=== PATIENT | male | born 1975 | race Caucasian/White ===

== ENCOUNTER 2021-09-28 11:59 | Inpatient (IN) | payer OTHER ==
[2021-09-28 14:00] VITALS: BMI 21.6
[2021-09-28] MEDS ORDERED: ACETAMINOPHEN 325 MG TABLET (FP) PO PRN ×2 (17:47)
[2021-09-28] MEDS ORDERED: MENTHOL/PHENOL 1 EACH UD MM PRN (17:47)
[2021-09-28] MEDS ORDERED: IBUPROFEN 400 MG TABLET (FP) PO PRN (17:47)
[2021-09-28] MEDS ORDERED: BISMUTH SUBSALICYLATE 524 MG/30 ML PO PRN (17:47)
[2021-09-28] MEDS ORDERED: MAGNESIUM HYDROX 2400MG/30ML ORAL SUSPENSION 30 ML CUP PO PRN (17:47)
[2021-09-28] MEDS ORDERED: MAG HYDROX/AL HYDROX/SIMETH 30 ML UNIT-DOSE CUP PO PRN (17:47)
[2021-09-28] MEDS ORDERED: METHOCARBAMOL 500 MG TABLET PO PRN (17:47)
[2021-09-28] MEDS ORDERED: ONDANSETRON *ODT* 4 MG TABLET SL PRN (17:47)
[2021-09-28] MEDS ORDERED: MAGNESIUM CITRATE 300 ML BOTTLE PO PRN (17:47)
[2021-09-28] MEDS ORDERED: NICOTINE 10 MG CARTRIDGE (INHALER) IH PRN (17:47)
[2021-09-28] MEDS: hydrOXYzine PAMOATE 25 MG CAPSULE (FP) PO SCH ×2 (18:50→22:36)
[2021-09-28] MEDS ORDERED: MELATONIN 5 MG TABLETS PO SCH (22:00)
[2021-09-28] MEDS ORDERED: THIAMINE HCL 100 MG TABLET (FP) PO SCH (22:00)
[2021-09-29] MEDS: hydrOXYzine PAMOATE 25 MG CAPSULE (FP) PO SCH ×3 (07:13→13:15)
[2021-09-29] MEDS ORDERED: NICOTINE 21 MG/24 HOURS TOPICAL PATCH TD SCH (10:00)
[2021-09-29] MEDS ORDERED: PRENATAL VITAMINS W/ FOLIC ACID TABLET (FP) PO SCH (10:00)
[2021-09-29 10:41] LABS: HEMATOCRIT 40.8 % (35.4-49); HEMOGLOBIN 13.9 GM/dL (11.7-16.9); MCH 31.1 pg (25.7-33.7); MEAN CELL VOLUME 91.5 fl (80-96); PLATELET COUNT 267 10^3/uL (134-434); RBC 4.46 M/mm3 (4.00-5.60); RDW 12.3 % (11.9-15.9); WHITE BLOOD COUNT 4.3 K/mm3 (4.0-10.0)
[2021-09-29 11:20] LABS: CALCIUM 8.8 mg/dL (8.5-10.1)
[2021-09-29 11:21] LABS: ALBUMIN 3.2 g/dl (3.4-5.0); BLOOD UREA NITROGEN 10.5 mg/dL (7-18)
[2021-09-29 11:23] LABS: BILIRUBIN,TOTAL 0.3 mg/dL (0.2-1); TOT PROT 7.6 g/dl (6.4-8.2)
[2021-09-29 11:24] LABS: CREATININE 0.8 mg/dL (0.55-1.3)
[2021-09-29 13:29] VITALS: BP 96/65; PULSE 79; TEMP 98.7
== END 2021-09-29 13:35 | disposition home or self-care (01) | DRG 774 ==
LOC: YASAS 11:59 → UNDOADMIN 15:17 → Y3N 15:17
PROVIDERS: ADMIT Allergy & Immunology; ATTEND Allergy & Immunology
PROC: HZ2ZZZZ Detoxification Services for Substance Abuse Treatment (ICD-10-PCS; principal; 2021-09-28)
DX: F10.230 Alcohol dependence with withdrawal, uncomplicated (principal); F14.20 Cocaine dependence, uncomplicated; F12.20 Cannabis dependence, uncomplicated; F17.210 Nicotine dependence, cigarettes, uncomplicated; Z21 Asymptomatic human immunodeficiency virus [HIV] infection status; Z91.14 Patient's other noncompliance with medication regimen
CPT/HCPCS: 36415; 80053; 85027; 86780; C9803; U0003; U0005

== ENCOUNTER 2022-03-16 11:57 | Inpatient (IN) | payer OTHER ==
[2022-03-16] MEDS ORDERED: IBUPROFEN 400 MG TABLET (FP) PO PRN (12:57)
[2022-03-16] MEDS ORDERED: MAGNESIUM CITRATE 300 ML BOTTLE PO PRN (12:57)
[2022-03-16] MEDS ORDERED: chlordiazePOXIDE HCL 25 MG CAPSULE PO PRN (12:57)
[2022-03-16] MEDS ORDERED: NICOTINE 10 MG CARTRIDGE (INHALER) IH PRN (12:57)
[2022-03-16] MEDS ORDERED: ONDANSETRON *ODT* 4 MG TABLET SL PRN (12:57)
[2022-03-16] MEDS ORDERED: ACETAMINOPHEN 325 MG TABLET (FP) PO PRN ×2 (12:57)
[2022-03-16] MEDS ORDERED: MAGNESIUM HYDROX 2400MG/30ML ORAL SUSPENSION 30 ML CUP PO PRN (12:57)
[2022-03-16] MEDS ORDERED: MAG HYDROX/AL HYDROX/SIMETH 30 ML UNIT-DOSE CUP PO PRN (12:57)
[2022-03-16] MEDS ORDERED: BENZOCAINE/MENTHOL (CHLORASEPTIC ) LOZENGE MM PRN (12:57)
[2022-03-16] MEDS: NICOTINE 21 MG/24 HOURS TOPICAL PATCH TD SCH (15:19)
[2022-03-16] MEDS: hydrOXYzine PAMOATE 25 MG CAPSULE (FP) PO SCH ×3 (15:19→22:53)
[2022-03-16] MEDS: PRENATAL VITAMINS W/ FOLIC ACID TABLET (FP) PO SCH (15:19)
[2022-03-16] MEDS: LOPERAMIDE HCL 2 MG CAPSULE PO PRN (15:19)
[2022-03-16] MEDS: chlordiazePOXIDE HCL 25 MG CAPSULE PO SCH ×2 (17:53→22:28)
[2022-03-16] MEDS: BISMUTH SUBSALICYLATE 262 MG/15 ML BTL PO PRN (17:55)
[2022-03-16] MEDS: THIAMINE HCL 100 MG TABLET (FP) PO SCH (22:28)
[2022-03-16] MEDS: MELATONIN 5 MG TABLETS PO SCH (22:28)
[2022-03-16] MEDS: MINERAL OIL/PETROLAT/WATER TOPICAL CREAM 113 GM JAR TP SCH (22:54)
[2022-03-17] MEDS: chlordiazePOXIDE HCL 25 MG CAPSULE PO SCH ×4 (06:07→23:18)
[2022-03-17] MEDS: hydrOXYzine PAMOATE 25 MG CAPSULE (FP) PO SCH ×5 (06:07→23:20)
[2022-03-17 10:21] LABS: HEMATOCRIT 42.2 % (35.4-49); MCHC 33.2 g/dl (32.0-35.9); MEAN CELL VOLUME 93.4 fl (80-96); MEAN PLT VOLUME 8.7 fl (7.5-11.1); PLATELET COUNT 284 10^3/uL (134-434); RBC 4.51 M/mm3 (4.00-5.60); RDW 12.9 % (11.9-15.9); WHITE BLOOD COUNT 7.7 K/mm3 (4.0-10.0)
[2022-03-17] MEDS: METHOCARBAMOL 500 MG TABLET PO PRN (10:41)
[2022-03-17] MEDS: BICTEGRAV/EMTRICIT/TENOFOV (BIKTARVY) 50-200-25 MG TABLET PO SCH (10:41)
[2022-03-17] MEDS: PRENATAL VITAMINS W/ FOLIC ACID TABLET (FP) PO SCH (10:41)
[2022-03-17] MEDS: NICOTINE 21 MG/24 HOURS TOPICAL PATCH TD SCH (10:45)
[2022-03-17] MEDS: MINERAL OIL/PETROLAT/WATER TOPICAL CREAM 113 GM JAR TP SCH ×2 (10:45→23:20)
[2022-03-17 10:48] LABS: CALCIUM 8.9 mg/dL (8.5-10.1)
[2022-03-17 10:49] LABS: ALBUMIN 3.2 g/dl (3.4-5.0); BLOOD UREA NITROGEN 9.1 mg/dL (7-18)
[2022-03-17 10:52] LABS: CREATININE 0.7 mg/dL (0.55-1.3)
[2022-03-17 10:53] LABS: BILIRUBIN,TOTAL 0.5 mg/dL (0.2-1); TOT PROT 7.2 g/dl (6.4-8.2)
[2022-03-17] MEDS: LOPERAMIDE HCL 2 MG CAPSULE PO PRN (23:19)
[2022-03-17] MEDS: THIAMINE HCL 100 MG TABLET (FP) PO SCH (23:19)
[2022-03-17] MEDS: MELATONIN 5 MG TABLETS PO SCH (23:19)
[2022-03-18] MEDS: hydrOXYzine PAMOATE 25 MG CAPSULE (FP) PO SCH ×5 (05:30→23:05)
[2022-03-18] MEDS: chlordiazePOXIDE HCL 25 MG CAPSULE PO SCH ×4 (05:31→22:40)
[2022-03-18] MEDS: METHOCARBAMOL 500 MG TABLET PO PRN (10:42)
[2022-03-18] MEDS: PRENATAL VITAMINS W/ FOLIC ACID TABLET (FP) PO SCH (10:42)
[2022-03-18] MEDS: MINERAL OIL/PETROLAT/WATER TOPICAL CREAM 113 GM JAR TP SCH ×2 (10:45→22:41)
[2022-03-18] MEDS: NICOTINE 21 MG/24 HOURS TOPICAL PATCH TD SCH (10:45)
[2022-03-18] MEDS: BICTEGRAV/EMTRICIT/TENOFOV (BIKTARVY) 50-200-25 MG TABLET PO SCH (10:50)
[2022-03-18] MEDS: THIAMINE HCL 100 MG TABLET (FP) PO SCH (22:40)
[2022-03-18] MEDS: MELATONIN 5 MG TABLETS PO SCH (22:41)
[2022-03-19] MEDS ORDERED: P-EPHED 60MG/TRIPROLIDI 2.5MG TABLET PO PRN
[2022-03-19] MEDS ORDERED: chlordiazePOXIDE HCL 10 MG CAPSULE PO PRN
[2022-03-19] MEDS: hydrOXYzine PAMOATE 25 MG CAPSULE (FP) PO SCH ×5 (06:17→22:00)
[2022-03-19] MEDS: chlordiazePOXIDE HCL 10 MG CAPSULE PO SCH ×4 (06:17→22:00)
[2022-03-19] MEDS: PRENATAL VITAMINS W/ FOLIC ACID TABLET (FP) PO SCH (10:52)
[2022-03-19] MEDS: MINERAL OIL/PETROLAT/WATER TOPICAL CREAM 113 GM JAR TP SCH ×2 (10:53→22:51)
[2022-03-19] MEDS: NICOTINE 21 MG/24 HOURS TOPICAL PATCH TD SCH (10:55)
[2022-03-19] MEDS: BICTEGRAV/EMTRICIT/TENOFOV (BIKTARVY) 50-200-25 MG TABLET PO SCH (10:57)
[2022-03-19] MEDS: LOPERAMIDE HCL 2 MG CAPSULE PO PRN (10:57)
[2022-03-19] MEDS: DICYCLOMINE HCL 10 MG CAPSULE PO PRN (12:21)
[2022-03-19] MEDS: BISMUTH SUBSALICYLATE 262 MG/15 ML BTL PO PRN (12:22)
[2022-03-19] MEDS: MELATONIN 5 MG TABLETS PO SCH (22:00)
[2022-03-19] MEDS: THIAMINE HCL 100 MG TABLET (FP) PO SCH (22:00)
[2022-03-19] MEDS: METHOCARBAMOL 500 MG TABLET PO PRN (22:52)
[2022-03-20] MEDS: hydrOXYzine PAMOATE 25 MG CAPSULE (FP) PO SCH ×5 (06:08→23:04)
[2022-03-20] MEDS: chlordiazePOXIDE HCL 10 MG CAPSULE PO SCH ×2 (06:09→18:31)
[2022-03-20] MEDS: NICOTINE 21 MG/24 HOURS TOPICAL PATCH TD SCH (10:50)
[2022-03-20] MEDS: BICTEGRAV/EMTRICIT/TENOFOV (BIKTARVY) 50-200-25 MG TABLET PO SCH (10:50)
[2022-03-20] MEDS: MINERAL OIL/PETROLAT/WATER TOPICAL CREAM 113 GM JAR TP SCH ×2 (10:50→23:05)
[2022-03-20] MEDS: PRENATAL VITAMINS W/ FOLIC ACID TABLET (FP) PO SCH (10:50)
[2022-03-20] MEDS: DICYCLOMINE HCL 10 MG CAPSULE PO PRN (14:27)
[2022-03-20] MEDS: THIAMINE HCL 100 MG TABLET (FP) PO SCH (23:04)
[2022-03-20] MEDS: MELATONIN 5 MG TABLETS PO SCH (23:04)
[2022-03-21] MEDS ORDERED: chlordiazePOXIDE HCL 10 MG CAPSULE PO ONE (05:00)
[2022-03-21] MEDS: hydrOXYzine PAMOATE 25 MG CAPSULE (FP) PO SCH ×2 (06:25→10:05)
[2022-03-21] MEDS: BISMUTH SUBSALICYLATE 262 MG/15 ML BTL PO PRN (07:29)
[2022-03-21 09:15] VITALS: BP 101/78; PULSE 94; TEMP 97.8
[2022-03-21] MEDS: NICOTINE 21 MG/24 HOURS TOPICAL PATCH TD SCH (10:05)
[2022-03-21] MEDS: PRENATAL VITAMINS W/ FOLIC ACID TABLET (FP) PO SCH (10:05)
[2022-03-21] MEDS: MINERAL OIL/PETROLAT/WATER TOPICAL CREAM 113 GM JAR TP SCH (10:05)
[2022-03-21] MEDS: BICTEGRAV/EMTRICIT/TENOFOV (BIKTARVY) 50-200-25 MG TABLET PO SCH (10:05)
== END 2022-03-21 09:44 | disposition home or self-care (01) | DRG 774 ==
LOC: YASAS 11:57 → Y6N 14:17
PROVIDERS: ADMIT Allergy & Immunology; ATTEND Surgery
PROC: HZ2ZZZZ Detoxification Services for Substance Abuse Treatment (ICD-10-PCS; principal; 2022-03-16)
DX: F10.230 Alcohol dependence with withdrawal, uncomplicated (principal); F14.10 Cocaine abuse, uncomplicated; F12.10 Cannabis abuse, uncomplicated; F17.210 Nicotine dependence, cigarettes, uncomplicated; Z21 Asymptomatic human immunodeficiency virus [HIV] infection status
CPT/HCPCS: 36415; 80053; 85027; 86780; 93005; 93010; C9803-CS; U0003; U0005

== ENCOUNTER 2022-05-17 13:50 | Inpatient (IN) | payer OTHER ==
[2022-05-17 15:49] VITALS: BMI 20.6
[2022-05-17] MEDS ORDERED: MAGNESIUM CITRATE 300 ML BOTTLE PO PRN (16:36)
[2022-05-17] MEDS ORDERED: BISMUTH SUBSALICYLATE 524 MG/30 ML PO PRN (16:36)
[2022-05-17] MEDS ORDERED: diazePAM 5 MG TABLET PO PRN (16:36)
[2022-05-17] MEDS ORDERED: MAGNESIUM HYDROX 2400MG/30ML ORAL SUSPENSION 30 ML CUP PO PRN (16:36)
[2022-05-17] MEDS ORDERED: LOPERAMIDE HCL 2 MG CAPSULE PO PRN (16:36)
[2022-05-17] MEDS ORDERED: DICYCLOMINE HCL 10 MG CAPSULE PO PRN (16:36)
[2022-05-17] MEDS ORDERED: NICOTINE 10 MG CARTRIDGE (INHALER) IH PRN (16:36)
[2022-05-17] MEDS ORDERED: IBUPROFEN 400 MG TABLET (FP) PO PRN (16:36)
[2022-05-17] MEDS ORDERED: ACETAMINOPHEN 325 MG TABLET (FP) PO PRN ×2 (16:36)
[2022-05-17] MEDS ORDERED: IBUPROFEN 600 MG TABLET (FP) PO PRN (16:36)
[2022-05-17] MEDS ORDERED: BENZOCAINE/MENTHOL (CHLORASEPTIC ) LOZENGE MM PRN (16:36)
[2022-05-17] MEDS ORDERED: MAG HYDROX/AL HYDROX/SIMETH 30 ML UNIT-DOSE CUP PO PRN (16:36)
[2022-05-17] MEDS ORDERED: ONDANSETRON *ODT* 4 MG TABLET SL PRN (16:36)
[2022-05-17] MEDS: hydrOXYzine PAMOATE 25 MG CAPSULE (FP) PO SCH ×2 (18:33→23:13)
[2022-05-17] MEDS: METHOCARBAMOL 500 MG TABLET PO PRN (18:33)
[2022-05-17] MEDS: diazePAM 5 MG TABLET PO SCH ×2 (18:33→23:13)
[2022-05-17] MEDS: PRENATAL VITAMINS W/ FOLIC ACID TABLET (FP) PO SCH (18:34)
[2022-05-17] MEDS ORDERED: MELATONIN 5 MG TABLETS PO SCH (22:00)
[2022-05-17] MEDS ORDERED: THIAMINE HCL 100 MG TABLET (FP) PO SCH (22:00)
[2022-05-18] MEDS: hydrOXYzine PAMOATE 25 MG CAPSULE (FP) PO SCH ×4 (06:12→21:45)
[2022-05-18] MEDS: diazePAM 5 MG TABLET PO SCH ×3 (06:12→21:45)
[2022-05-18] MEDS: PRENATAL VITAMINS W/ FOLIC ACID TABLET (FP) PO SCH (10:54)
[2022-05-18] MEDS: METHOCARBAMOL 500 MG TABLET PO PRN (10:55)
[2022-05-18 22:13] VITALS: BP 127/88; PULSE 93; RESP 18; TEMP 97.5
[2022-05-19] MEDS ORDERED: diazePAM 5 MG TABLET PO SCH (06:00)
[2022-05-20] MEDS ORDERED: diazePAM 5 MG TABLET PO SCH (06:00)
[2022-05-21] MEDS ORDERED: diazePAM 5 MG TABLET PO ONE (06:00)
== END 2022-05-18 18:03 | disposition left against medical advice (07) | DRG 770 ==
LOC: YASAS 13:50 → Y6N 17:38
PROVIDERS: ADMIT Allergy & Immunology; ATTEND Surgery
PROC: HZ2ZZZZ Detoxification Services for Substance Abuse Treatment (ICD-10-PCS; principal; 2022-05-17)
DX: F14.20 Cocaine dependence, uncomplicated (principal); F12.20 Cannabis dependence, uncomplicated; F17.210 Nicotine dependence, cigarettes, uncomplicated; U07.1 COVID-19; Z21 Asymptomatic human immunodeficiency virus [HIV] infection status
CPT/HCPCS: C9803-CS; U0003; U0005

== ENCOUNTER 2022-12-23 11:50 | Inpatient (IN) | payer OTHER ==
[2022-12-23 13:25] VITALS: BMI 21.6
[2022-12-23] MEDS ORDERED: POLYETHYLENE GLYCOL (HEALTHYLAX) 3350 17 GM PACKET PO PRN (13:39)
[2022-12-23] MEDS ORDERED: MAGNESIUM HYDROX 2400MG/30ML ORAL SUSPENSION 30 ML CUP PO PRN (13:39)
[2022-12-23] MEDS ORDERED: BISMUTH SUBSALICYLATE 524 MG/30 ML PO PRN (13:39)
[2022-12-23] MEDS ORDERED: IBUPROFEN 600 MG TABLET (FP) PO PRN (13:39)
[2022-12-23] MEDS ORDERED: ONDANSETRON *ODT* 4 MG TABLET SL PRN (13:39)
[2022-12-23] MEDS ORDERED: BENZOCAINE/MENTHOL (CHLORASEPTIC ) LOZENGE MM PRN (13:39)
[2022-12-23] MEDS ORDERED: LOPERAMIDE HCL 2 MG CAPSULE PO PRN (13:39)
[2022-12-23] MEDS ORDERED: IBUPROFEN 400 MG TABLET (FP) PO PRN (13:39)
[2022-12-23] MEDS ORDERED: DICYCLOMINE HCL 10 MG CAPSULE PO PRN (13:39)
[2022-12-23] MEDS ORDERED: MAG HYDROX/AL HYDROX/SIMETH 30 ML UNIT-DOSE CUP PO PRN (13:39)
[2022-12-23] MEDS ORDERED: ACETAMINOPHEN 325 MG TABLET (FP) PO PRN ×2 (13:39)
[2022-12-23] MEDS ORDERED: NICOTINE 10 MG CARTRIDGE (INHALER) IH PRN (13:39)
[2022-12-23] MEDS ORDERED: NALOXONE HCL (KLOXXADO) 8 MG SPRAY NS PRN (13:39)
[2022-12-23] MEDS: NICOTINE 7 MG/24 HOURS TOPICAL PATCH TD SCH (15:07)
[2022-12-23] MEDS: PRENATAL VITAMINS W/ FOLIC ACID TABLET (FP) PO SCH (15:07)
[2022-12-23 17:34] LABS: HEMATOCRIT 40.8 % (35.4-49); HEMOGLOBIN 13.9 GM/dL (11.7-16.9); MCH 30.2 pg (25.7-33.7); MEAN CELL VOLUME 88.9 fl (80-96); MEAN PLT VOLUME 7.8 fl (7.5-11.1); PLATELET COUNT 255 10^3/uL (134-434); RBC 4.59 M/mm3 (4.00-5.60); RDW 12.3 % (11.9-15.9); WHITE BLOOD COUNT 4.7 K/mm3 (4.0-10.0)
[2022-12-23 18:10] LABS: BLOOD UREA NITROGEN 13.5 mg/dL (7-18); CALCIUM 8.8 mg/dL (8.5-10.1)
[2022-12-23 18:11] LABS: ALBUMIN 3.3 g/dl (3.4-5.0)
[2022-12-23 18:14] LABS: CREATININE 0.7 mg/dL (0.55-1.3)
[2022-12-23 18:15] LABS: BILIRUBIN,TOTAL 0.3 mg/dL (0.2-1)
[2022-12-23] MEDS: THIAMINE HCL 100 MG TABLET (FP) PO SCH (22:24)
[2022-12-23] MEDS: MELATONIN 5 MG TABLETS PO SCH (22:24)
[2022-12-24] MEDS: PRENATAL VITAMINS W/ FOLIC ACID TABLET (FP) PO SCH (10:21)
[2022-12-24] MEDS: hydrOXYzine PAMOATE 25 MG CAPSULE (FP) PO PRN ×2 (10:21→22:27)
[2022-12-24] MEDS: METHOCARBAMOL 500 MG TABLET PO PRN (10:21)
[2022-12-24] MEDS: NICOTINE 7 MG/24 HOURS TOPICAL PATCH TD SCH (10:21)
[2022-12-24] MEDS: MELATONIN 5 MG TABLETS PO SCH (22:27)
[2022-12-24] MEDS: THIAMINE HCL 100 MG TABLET (FP) PO SCH (22:27)
[2022-12-25 09:12] VITALS: BP 115/74; PULSE 88; RESP 15; TEMP 98
[2022-12-25] MEDS: PRENATAL VITAMINS W/ FOLIC ACID TABLET (FP) PO SCH (09:47)
[2022-12-25] MEDS: NICOTINE 7 MG/24 HOURS TOPICAL PATCH TD SCH (09:47)
[2022-12-25] MEDS: hydrOXYzine PAMOATE 25 MG CAPSULE (FP) PO PRN (09:47)
[2022-12-25] MEDS: METHOCARBAMOL 500 MG TABLET PO PRN (09:48)
== END 2022-12-25 12:08 | disposition other institution (70) | DRG 774 ==
LOC: YASAS 11:50 → Y6N 13:53
PROVIDERS: ADMIT Allergy & Immunology; ATTEND Surgery
PROC: HZ2ZZZZ Detoxification Services for Substance Abuse Treatment (ICD-10-PCS; principal; 2022-12-23)
DX: F10.230 Alcohol dependence with withdrawal, uncomplicated (principal); F14.20 Cocaine dependence, uncomplicated; F12.20 Cannabis dependence, uncomplicated; F17.210 Nicotine dependence, cigarettes, uncomplicated; B20 Human immunodeficiency virus [HIV] disease; Z79.899 Other long term (current) drug therapy; Z56.0 Unemployment, unspecified; Z59.00 Homelessness unspecified
CPT/HCPCS: 36415; 80053; 85027; 86780; 87811; C9803-CS; U0003; U0005